=== PATIENT | male | born 1940 | race Caucasian/White ===

== ENCOUNTER 2016-12-22 09:29 | Outpatient (CLI) | payer MEDICARE, OTHER ==
[2016-12-22 09:57] LABS: MEAN CORPUSCULAR HEMOGLOBIN 32.6 pg (28.0-34.0); MEAN CORPUSCULAR VOLUME 98.8 fl (80.0-100.0)
[2016-12-22 10:23] LABS: eGFR (African) > 60; eGFR (Non-African) > 60
== END 2016-12-22 09:30 ==
LOC: LAB 09:29
PROVIDERS: ATTEND Family Medicine
DX: E78.00 Pure hypercholesterolemia, unspecified (principal); Z95.1 Presence of aortocoronary bypass graft; I10 Essential (primary) hypertension; Z51.81 Encounter for therapeutic drug level monitoring
CPT/HCPCS: 36415; 80053; 80061; 85027